=== PATIENT | male | born 1980 | race Caucasian/White ===

== ENCOUNTER 2017-12-07 10:37 | Inpatient (IN) ==
[2017-12-07] MEDS ORDERED: ATIVAN IM STA (10:41)
[2017-12-07] MEDS ORDERED: HALDOL IM STA (10:42)
[2017-12-07] MEDS ORDERED: SODIUM CHLORIDE 1,000 ML IV STA ×2 (10:44→12:27)
[2017-12-07] MEDS ORDERED: ATIVAN IVP STA ×2 (11:26→11:52)
[2017-12-07] MEDS ORDERED: GEODON IM STA (11:53)
--- NOTE | 2017-12-07 12:24 | ED.PDOC ---
General ED Provider: Dr. 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 states that he did not leave the premises upon being asked to leave by the veterinary technology instructor of property. Time Seen by Physician: 11:00 Mode of Arrival: Police Information Source: Patient, Police Exam Limitations: Altered mental status, Intoxication Nursing and Triage Documentation Reviewed and Agree: Yes Reviewed sepsis parameters & appropriate labs ordered?: Yes System Inflammatory Response Syndrome: Pulse >90 BPM Sepsis Protocol: For patient's 13 years and over: Temp is 96.8 and below OR 101 and greater Pulse >90 BPM Resp >20/minute Acutely Altered Mental Status Are patient's symptoms suggestive of a new infection, such as: -Pneumonia -Skin, Soft Tissue -Endocarditis -UTI -Bone, Joint Infection -Implantable Device -Acute Abdominal Infection -Wound Infection -Meningitis -Blood Stream Catheter Infection -Unknown Psychological Complaint Exam - Substance Abuse/Use Complaint/Exam Patient Complains Of Substance Abuse Of: Other (no history obtainable) Patient Complains Of Substance Withdrawal Of: Other (see above) Aggravating: Reports: None (unobtainable) Alleviating: Reports: Medication Associated Signs And Symptoms: Reports: Confused, Tremulous, Agitated Related History: Reports: Prior attempts (pt altered is not able to provide ) Completed Suicide Risk Factors: Male Social Withdrawal Present: No (unable to assertain) Social Isolation Present: No (see above) Patient Uncooperative For Exam: Yes (pt arrived altered agitated alert to self unable obtain history) Mood: Present: Agitated, Anxious Appearance: Present: Clean Differential Diagnoses: Alcohol Withdrawal, Drug Withdrawal, Delirium Tremens Quality Indicator For Non-Traumatic Chest Pain/Syncope: EKG Performed Review of Systems - Review Of Systems Constitutional: Reports: No symptoms Eyes: Reports: No symptoms Ears, Nose, Mouth, Throat: Reports: No symptoms Respiratory: Reports: No symptoms Cardiac: Reports: No symptoms GI: Reports: No symptoms : Reports: No symptoms Musculoskeletal: Reports: No symptoms Skin: Reports: No symptoms Neurological: Reports: Other (mental status) Endocrine: Reports: No symptoms Hematologic/Lymphatic: Reports: No symptoms All Other Systems: Reviewed and Negative Past Medical History - Past Medical History Previously Healthy: Yes Endocrine: Reports: Unknown Cardiovascular: Reports: Unknown Respiratory: Reports: None Hematological: Reports: Unknown Gastrointestinal: Reports: Unknown Genitourinary: Reports: Unknown Neuro/Psych: Reports: Unknown Musculoskeletal: Reports: Unknown Cancer: Reports: Unknown - Surgical History General Surgical History: Reports: None - Family History Family History: Reports: None - Social History Smoking Status: Unknown if ever smoked Physical Exam - Physical Exam Appearance: Ill-appearing Ill-appearing: Severe Eyes: EOMI (right pupil is dilated but reactive) ENT: Ears normal, Nose normal, Oropharynx normal Respiratory: Airway patent, Breath sounds clear, Breath sounds equal, Respirations nonlabored Cardiovascular: RRR, Pulses normal, No rub, No murmur GI/: Soft, Nontender, No masses, Bowel sounds normal, No Organomegaly Musculoskeletal: Normal strength, ROM intact, No edema, No calf tenderness Skin: Warm, Dry, Normal color Neurological: Sensation intact, Motor intact, Reflexes intact, Cranial nerves intact, Alert, Oriented Psychiatric: Affect appropriate, Mood appropriate Interpretation - Radiology Interpretation Radiology Interpretation By: Radiologist Radiology Results: Negative Exam Interpreted: CT Scan - Simplex Operator Rate: Normal Rhythm: Sinus Ectopy: None - EKG Interpretation Rate: Normal Rhythm: Sinus Ectopy: None [place]: NL ST Segment: Normal Re-Evaluation - Re-Evaluation Time of Re-Evaluation: 13:17 Status: Improved Vital Signs Stable: Yes Pain Level: 0 Appearance: NAD Lungs: Clear Skin: Warm and Dry Neuro: Other (dirientated x e rythmic jerking movement of lower ext bilateral) Physician Notification - Case Discussed Physician Notified: [email or web address] Time of Notification: 15:03 Admit To: Inpatient Critical Care Note - Critical Care Note Total Time (mins): 0 Course - Course Hematology/Chemistry: 12/07/17 11:50 12/07/17 11:50 Orders, Labs, Meds: Lab Review 12/07/17 12/07/17 12/07/17 11:50 11:50 11:50 WBC 11.32 H RBC 4.55 L Hgb 13.7 L Hct 39.5 L MCV 86.8 MCH 30.1 MCHC 34.7 RDW Coeff of Spenser 13.2 Plt Count 251 Immature Gran % (Auto) 0.3 Neut % (Auto) 72.1 Lymph % (Auto) 19.6 [facility] % (Auto) 5.3 Eos % (Auto) 1.7 Baso % (Auto) 1.0 Immature Gran # (Auto) 0.0 Neut # (Auto) 8.2 H Lymph # (Auto) 2.2 [facility] # (Auto) 0.6 Eos # (Auto) 0.2 Baso # (Auto) 0.1 PT 10.8 INR 1.08 Puncture Site O2 Saturation ABG pH ABG pCO2 ABG pO2 ABG HCO3 ABG Total CO2 ABG Base Excess Teo Test FiO2 % Sodium 146 H Potassium 3.9 Chloride 107 Carbon Dioxide 25 Anion Gap 17.9 BUN 10 Creatinine 1.26 H Estimated GFR (MDRD) 64.00 BUN/Creatinine Ratio 7.93 Glucose 73 Calcium 10.0 Total Bilirubin 0.5 AST 47 H ALT 41 Alkaline Phosphatase 75 Total Protein 8.0 Albumin 4.2 Globulin 3.8 Albumin/Globulin Ratio 1.11 Urine Color Urine Clarity Urine pH Ur Specific [place]ham Urine Protein Urine Glucose (UA) Urine Ketones Urine Blood Urine Nitrite Urine Bilirubin Urine Urobilinogen Ur Leukocyte Esterase Ur Squamous Epith Cells Urine Mucus Salicylate Level mg/dL < 5.0 Urine Opiates Screen Ur Oxycodone Screen Urine Methadone Screen Ur Propoxyphene Screen Acetaminophen < 3 L Ur Barbiturates Screen U Tricyclic Antidepress Ur Phencyclidine Scrn Ur Amphetamine Screen U Methamphetamines Scrn U Benzodiazepines Scrn Urine Cocaine Screen U Cannabinoids Screen Plasma/Serum Alcohol < 10.0 12/07/17 12/07/17 12/07/17 14:00 14:17 14:17 WBC RBC Hgb Hct MCV MCH MCHC RDW Coeff of Spenser Plt Count Immature Gran % (Auto) Neut % (Auto) Lymph % (Auto) [facility] % (Auto) Eos % (Auto) Baso % (Auto) Immature Gran # (Auto) Neut # (Auto) Lymph # (Auto) [facility] # (Auto) Eos # (Auto) Baso # (Auto) PT INR Puncture Site R rad O2 Saturation 93.0 L ABG pH 7.367 ABG pCO2 46.4 H ABG pO2 71.0 L ABG HCO3 26.6 H ABG Total CO2 28 ABG Base Excess 1 Teo Test + FiO2 % 21.0 Sodium Potassium Chloride Carbon Dioxide Anion Gap BUN Creatinine Estimated GFR (MDRD) BUN/Creatinine Ratio Glucose Calcium Total Bilirubin AST ALT Alkaline Phosphatase Total Protein Albumin Globulin Albumin/Globulin Ratio Urine Color Yellow Urine Clarity Clear Urine pH 5.5 Ur Specific [place] >=1.030 Urine Protein 1+ Urine Glucose (UA) Negative Urine Ketones Trace Urine Blood Negative Urine Nitrite Negative Urine Bilirubin 1+ Urine Urobilinogen 1.0 Ur Leukocyte Esterase Negative Ur Squamous Epith Cells Not present Urine Mucus 3+ Salicylate Level mg/dL Urine Opiates Screen Negative Ur Oxycodone Screen Negative Urine Methadone Screen Negative Ur Propoxyphene Screen Negative Acetaminophen Ur Barbiturates Screen Negative U Tricyclic Antidepress Negative Ur Phencyclidine Scrn Negative Ur Amphetamine Screen Positive U Methamphetamines Scrn Positive U Benzodiazepines Scrn Positive Urine Cocaine Screen Negative U Cannabinoids Screen Negative Plasma/Serum Alcohol Orders Category Date Time Status ABG DRAW REQUEST Stat CARDIO 12/07/17 10:49 Completed EKG-(ED ONLY) Stat CARDIO 12/07/17 10:43 Completed ED BASEBALL PITCHER APPLIED ONCE EMERGENCY 12/07/17 10:43 Active ED IV/MEDIPORT/POWERPORT .ONCE EMERGENCY 12/07/17 10:43 Active Restrain [ED RESTRAINTS] .ONCE EMERGENCY 12/07/17 10:52 Active ABG Stat LAB 12/07/17 14:00 Completed ACETAMINOPHEN Stat LAB 12/07/17 11:50 Completed BLOOD ALCOHOL Stat LAB 12/07/17 11:50 Completed CBC W/ AUTO DIFF Stat LAB 12/07/17 11:50 Completed COMPREHENSIVE METABOLIC PANEL Stat LAB 12/07/17 11:50 Completed DRUG SCREEN, URINE, RAPID Stat LAB 12/07/17 14:17 Completed PT WITH INR Stat LAB 12/07/17 11:50 Completed SALICYLATE Stat LAB 12/07/17 11:50 Completed URINALYSIS C & S IF INDICATED Stat LAB 12/07/17 14:17 Completed 0.9 % Sodium Chloride [Saline Flush] MEDS 12/07/17 10:43 Active 1 syr IVF PRN PRN Haloperidol Lactate [Haldol] MEDS 12/07/17 10:42 Discontinued 5 mg IM ONCE STA Lorazepam [Ativan] MEDS 12/07/17 11:26 Discontinued 1 mg IVP ONCE STA Lorazepam [Ativan] MEDS 12/07/17 11:52 Discontinued 1 mg IVP ONCE STA Lorazepam [Ativan] MEDS 12/07/17 10:41 Discontinued 2 mg IM ONCE STA Sodium Chloride 0.9% [Sodium Chloride] 1,000 ml MEDS 12/07/17 10:44 Active IV 125 mls/hr Sodium Chloride 0.9% [Sodium Chloride] 1,000 ml MEDS 12/07/17 12:27 Active IV 125 mls/hr Ziprasidone Mesylate [Geodon] MEDS 12/07/17 11:53 Discontinued 10 mg IM ONCE STA CT HEAD W/O CONTRAST Stat RADS 12/07/17 10:54 Completed Medications Generic Name Dose Route Start Last Admin Trade Name Freq PRN Reason Stop Dose Admin Sodium Chloride 1,000 mls @ 125 mls/hr 12/07/17 10:44 12/07/17 11:37 Sodium Chloride IV 12/07/17 18:43 125 mls/hr .Q8H STA Administration Sodium Chloride 1,000 mls @ 125 mls/hr 12/07/17 12:27 12/07/17 12:33 Sodium Chloride IV 12/07/17 20:26 125 mls/hr .Q8H STA Administration Sodium Chloride 1 syr 12/07/17 10:43 Saline Flush IVF PRN PRN To flush IV Discontinued Medications Generic Name Dose Route Start Last Admin Trade Name Freq PRN Reason Stop Dose Admin Haloperidol Lactate 5 mg 12/07/17 10:42 12/07/17 10:59 Haldol IM 12/07/17 10:43 5 mg ONCE STA Administration Lorazepam 2 mg 12/07/17 10:41 12/07/17 10:58 Ativan IM 12/07/17 10:42 2 mg ONCE STA Administration Lorazepam 1 mg 12/07/17 11:26 12/07/17 11:37 Ativan IVP 12/07/17 11:27 1 mg ONCE STA Administration Lorazepam 1 mg 12/07/17 11:52 12/07/17 12:07 Ativan IVP 12/07/17 11:53 1 mg ONCE STA Administration Ziprasidone 10 mg 12/07/17 11:53 12/07/17 12:10 Geodon IM 12/07/17 11:54 10 mg ONCE STA Administration Vital Signs: Temp Pulse Resp BP Pulse Ox 12/07/17 10:56 134/117 H 12/07/17 10:39 99.5 F 138 H 20 00/00 L 95 Departure - Departure Time of Disposition: 15:03 Disposition: ADMITTED INPATIENT Discharge Problem: Altered mental status Instructions: Altered Mental Status (ED) Condition: Good Pt referred to PMD for follow-up: Yes IPMP verified?: No Additional Instructions: Please call your Family Physician as soon as possible to schedule a follow-up appointment. Allergies/Adverse Reactions: Allergies No Known Allergies Allergy (Unverified 12/07/17 13:18)
--- NOTE | 2017-12-07 13:19 | CT ---
EXAM: CT of the head without contrast History: Altered mental status, overdose. Technique: Multiplanar CT images through the head were obtained without the administration of IV con trast Findings: The visualized paranasal sinuses and mastoid air cells are clear in general. Artificial l eft globe. No acute calvarial abnormalities. Intracranially the ventricular and cisternal spaces are normal in size, shape and configuration for a patient of this age. No dominant mass or midline shift. No hydrocephalous. No acute intracranial hemorrhage or abnormal extraaxial fluid collections. Impression: No acute intracranial process.
[2017-12-07] MEDS ORDERED: SODIUM CHLORIDE 1,000 ML IV SCH (15:30)
[2017-12-07 16:32] VITALS: BMI 21.4
--- NOTE | 2017-12-07 17:07 | PCM ---
- Chief Complaint Chief Complaint: Acute Methamphetamine intoxication - History of Present Illness History of Present Illness: 37 yo male presented to ER via police car today around 10:39am with complaint of agitation, shaking, sweating, hallucinations and tachycardia. Dr. Villa called me around 1:30 pm with admission, patient sedated with Geodon, Haldol and ativan and 4 point restraints. I was informed that vitals were stable, labs were normal except mild hypernatremia and mild DHRUV. Anuric while in ER and I asked for a cath specimen for tox. Returned call around 3PM from LOVE arzola and noted +Meth, +Amp and +Benzo (given by ER). I asked about warrants, status of home, status of state of residency, any known history, any priors, any family, these were all unknown. He was combative, staying at local hotel and the hotel agent asked him to leave and he would not so police were called. He was brought here for evaluation by [facility] dept. Alterred mental status, intoxicated with something, unknown initially, but was found later to be meth +. Pulse was elevated at 138 on initial eval, temp 99.5, Blood pressure 134/117 at 10:56 am and O2 95%. Unknown history of substance abuse. Unknown family history, unknown Past medical history, unknown surgical history. He has skin graft right thigh onto righ calf. ER evaluated him for DT, ETOH intox/withdrawal. Uncooperative with exam, agitated, self responsive but history unobtainable. He was restrained, would not cooperate and decision to chemically and physically restrain was undertaken. In ER he was given Haldol 5mg 10:43 am, Geodon 10mg 11:54 am, Ativan 2 mg 10:42 am. ROS unable to obtain but he did walk into ER with police. Confusion noted. Right pupil listed as dilated but reactive. 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 Remainder of exam essentially negative in ER. EKG (not available at time that I completed H+P) discussed with ER provider who reviewed this and was related as normal. Placed onto driver guide. CT head completed and negative for acute bleed, no e/o infarction. 13:17 ER noted some jerking bilateral LE. Contacted me 15:03, admitted to inpatient. Labs reviewed with ER and personally discussed case with the provider and with LOVE arzola. White count mildly elevated at 11.32, mild anemia with hgb 13.7 and normal plt at 251. Sodium mildly elevated at 146 , K+ normal 3.9, cl normal 107, Bicarb normal 25, BUN normal 10, Cr elevated at 1.26 and acute renal failure is possible. Glucose mildly low at 73. PT normal 10.8, INR normal 1.08. AST mild elevation at 47. Calcium normal, remainder of lcmp normal. Salicylate negative, acetaminophen negative. ETOH negative. UA looks okay with pH 5.5, SG 1.030 supporting concentrated urine likely dehydration. 1+ protein, trace ketones, 1+ bili. Tox screen returned positive for amp, meth, benzo (hospital given). He is currently on maintenance fluids of 75ml/hour. I will continue this at 125 ml/hour which is fdc between maintenance and maintenance 1.5. ABG: Chronic (compensated) primary respiratory acidosis as the pH should be less than <7.35 and HCO3 less than < 25, for acute (uncompensated) and pH should be greater than > 7.38 and HCO3 greater than > 26, for chronic ( compensated) expected pH = 7.39 expected CO2 = 48 expected HCO3- = 26 Vital Signs - 24 hr 12/07/17 12/07/17 12/07/17 10:39 10:56 16:18 Temperature 99.5 F 97.2 F L Pulse Rate 138 H 73 Respiratory 20 16 Rate Blood Pressure 00/00 L 134/117 H O2 Sat by Pulse 95 95 Oximetry 12/07/17 17:07 Temperature 97.2 F L Pulse Rate 73 Respiratory 16 Rate Blood Pressure 134/117 H O2 Sat by Pulse 95 Oximetry REVIEW OF SYMPTOMS: General: UNABLE TO OBTAIN PATIENT IS SEDATED and currently unable to provide history. Lying position left lateral decubitus. Diaphoretic at presentation. HEENT: UNABLE TO OBTAIN PATIENT IS SEDATED and currently unable to provide history. Artificial eye reported left. Respiratory: UNABLE TO OBTAIN PATIENT IS SEDATED and currently unable to provide history. Cardiovascular: UNABLE TO OBTAIN PATIENT IS SEDATED and currently unable to provide history. Tachycardic at presentation. Gastro: UNABLE TO OBTAIN PATIENT IS SEDATED and currently unable to provide history. Genito: UNABLE TO OBTAIN PATIENT IS SEDATED and currently unable to provide history. [place]: UNABLE TO OBTAIN PATIENT IS SEDATED and currently unable to provide history. Contracted, rigid. Reported rhythmic bilateral LE jerking. Skin: UNABLE TO OBTAIN PATIENT IS SEDATED and currently unable to provide history. Neuro: UNABLE TO OBTAIN PATIENT IS SEDATED and currently unable to provide history. Endocrine: UNABLE TO OBTAIN PATIENT IS SEDATED and currently unable to provide history. Psychiatric: UNABLE TO OBTAIN PATIENT IS SEDATED and currently unable to provide history. Nurses noted that patient was combative, hallucinating. Heme/lymph: UNABLE TO OBTAIN PATIENT IS SEDATED and currently unable to provide history. Allergic/immune: UNABLE TO OBTAIN PATIENT IS SEDATED and currently unable to provide history. - Past Medical History Past Medical History: UNABLE TO OBTAIN PATIENT IS SEDATED and currently unable to provide history. - Past Surgical History Past Surgical History: UNABLE TO OBTAIN PATIENT IS SEDATED and currently unable to provide history. - Allergies Allergies/Adverse Reactions: Allergies Allergy/AdvReac Type Severity Reaction Status Date / Time No Known Allergies Allergy Unverified 12/07/17 13:18 - Medications Medications: Medications Generic Name Dose Route Start Last Admin Trade Name Freq PRN Reason Stop Dose Admin Sodium Chloride 1,000 mls @ 125 mls/hr 12/07/17 10:44 12/07/17 11:37 Sodium Chloride IV 12/07/17 18:43 125 mls/hr .Q8H STA Administration Sodium Chloride 1,000 mls @ 125 mls/hr 12/07/17 12:27 12/07/17 12:33 Sodium Chloride IV 12/07/17 20:26 125 mls/hr .Q8H STA Administration Sodium Chloride 1,000 mls @ 75 mls/hr 12/07/17 15:30 12/07/17 16:43 Sodium Chloride IV 75 mls/hr .[id number] TRISH Administration Sodium Chloride 1 syr 12/07/17 10:43 Saline Flush IVF PRN PRN To flush IV - Family History Past Family History: UNABLE TO OBTAIN PATIENT IS SEDATED and currently unable to provide history. - Social History Past Social History: UNABLE TO OBTAIN PATIENT IS SEDATED and currently unable to provide history. - Vital Signs Temperature: 97.2 F Pulse Rate: 73 Respiratory Rate: 16 Blood Pressure: 134/117 O2 Sat by Pulse Oximetry: 95 - Body Composition Height: 5 ft 6 in Weight: 132 lb 7.965 oz Body Mass Index (BMI): 21.4 - Physical Examination HEENT: Constitutional: PATIENT EVALUATED IN SCU-2 17:00 Appearance-Sedated, lateral decubitus, hips flexed knees flexed ankles dorsiflexed. Arms held close as well into position. He is breathing calmly, clearly. Did not respond to name, did not respond to tapping arm, did not respond to sternal rub, but did have grimmace and did groan. Chemically sedated with multiple agents. BP is stable. Nurse Ver[place] present during my entire exam, noted that he has been like this since arrival. No decubitus ulcers, he has history of graft from right thigh to linda. Thin, fit, non emaciated. He would not open eyes to verbal command. Orientation- NON oriented x 3, sedated. Gait- 4 point restraints are off. Build and Nutrition-NORMAL Integumentary: General-No rashes, ulcers or lesions. Scar as noted. Capillary refill is normal bilateral Upper and lower extremity. Head/Neck: Head- normocephalic and atraumatic. Neck- without visible/palpable lumps or pulsations. Palpation- No bony tenderness about head/neck along frontal, occipital, temporal, parietal, mastoid, jawline, zygoma, orbit or any other location. NO temporal artery tenderness. No TMJ tenderness. Neck Supple. Thyroid-No thyromegaly, no nodules Eye: Bilaterally PERRLA on right. Dilated but reactive. Unable to assessEOMI. Left eye not responsive, appears artificial. No discharge bilaterally. Upper and lower eyelids appear normal. Sclera/conjunctiva normal without discharge. Cornea is normal and clear. Lens is normal. Eyeball appears normal. No ciliary flushing, no conjunctival injection. ENMT: Pinna- normal without tenderness or erythema. External auditory canal Left- normal without erythema or discharge, no excessive cerumen. External auditory canal Right-normal without erythema or discharge, no excessive cerumen. TM left- [place]/pearly, normal light reflex and anatomy TM Right- [place]/ pearly, normal light reflex and anatomy Nose and sinus- External appearance normal and midline. Nares- bilateral quiet airflow, no discharge. Nasal mucosa- No bleeding noted and no ulcerations observed. [place], moist. Turbinates non boggy. Lips- normal color, moist without cracks/lesions Oral Cavity/Palate- hard /soft palate intact without lesions, oral mucosa pink and moist. Oropharynx- no pharyngeal erythema, Uvula midline. CHEST/LUNG: Inspection- symmetric chest wall no pectus deformity. Normal effort , no distress, no use of accessory muscles. Palpation- nontender sternum, ribline. No abnormal pulsations. Auscultation- Breath sounds normal throughout all lung clement. Normal tracheal sounds, Normal bronchial sounds overlying sternum, Bronchovessicular sounds normal between scapulae posteriorly, Normal vessicular breath sounds heard throughout periphery. Lungs are clear today. Adventitious sounds- No wheezes, rales, rhonchi. CARDIOVASCULAR: Palpation/Percussion- Normal PMI, no palpable thrill Auscultation- Regular rate and rhythm. No murmur noted in supine position. Extremities- no digital clubbing, cyanosis, edema, increased warmth. ABDOMEN: Inspection- normal and no visible pulsations. Normal contour. Auscultation- Bowel sounds normal, no abdominal bruits. Patient sedated, unable to assess for abdominal pain. Peripheral Vascular: Upper extremity Left- Normal temperature with pink nailbeds and no ulcerations. Upper extremity Right- Normal temperature with pink nailbeds and no ulcerations. Lower extremity- Normal temperature with pink nailbeds and no ulcerations. DP pulses 2+ bilaterally. Pedal hair intact. Normal capillary refill. Edema- No edema. Musculoskeletal: Generalized-Rigid, hypertonic (NOT DIAPHORETIC NOW, AFEBRILE, Normal HR, no tachypnea, no autonomic processes at this time). He did not like to extend knee or hip. Flexed hips, flexed knees, dorsiflexed ankles and arms are pulled in tight into a ball. Lateral decubitus position. Breathing comfortably. Neurological/Psych: Sedated. Pain response is present, withdraws to pain. Reflexes intact, dulled 1+ bracial, bicep, patellar. Babinski negative/ downgoing. Lymphatic: Head/Neck- normal size and non tender to palpation. Axillary- normal size and non tender to palpation. Femoral and Inguinal- normal size and non tender to palpation. - Lab/Tests/Diagnostic Imaging Lab/Tests/Diagnostic Imaging: Laboratory Results - last 24 hr 12/07/17 12/07/17 12/07/17 11:50 11:50 11:50 WBC 11.32 H RBC 4.55 L Hgb 13.7 L Hct 39.5 L MCV 86.8 MCH 30.1 MCHC 34.7 RDW Coeff of Spenser 13.2 Plt Count 251 Immature Gran % (Auto) 0.3 Neut % (Auto) 72.1 Lymph % (Auto) 19.6 [place] % (Auto) 5.3 Eos % (Auto) 1.7 Baso % (Auto) 1.0 Immature Gran # (Auto) 0.0 Neut # (Auto) 8.2 H Lymph # (Auto) 2.2 [place] # (Auto) 0.6 Eos # (Auto) 0.2 Baso # (Auto) 0.1 PT 10.8 INR 1.08 Puncture Site O2 Saturation ABG pH ABG pCO2 ABG pO2 ABG HCO3 ABG Total CO2 ABG Base Excess Teo Test FiO2 % Sodium 146 H Potassium 3.9 Chloride 107 Carbon Dioxide 25 Anion Gap 17.9 BUN 10 Creatinine 1.26 H Estimated GFR (MDRD) 64.00 BUN/Creatinine Ratio 7.93 Glucose 73 Calcium 10.0 Total Bilirubin 0.5 AST 47 H ALT 41 Alkaline Phosphatase 75 Total Protein 8.0 Albumin 4.2 Globulin 3.8 Albumin/Globulin Ratio 1.11 Urine Color Urine Clarity Urine pH Ur Specific [place] Urine Protein Urine Glucose (UA) Urine Ketones Urine Blood Urine Nitrite Urine Bilirubin Urine Urobilinogen Ur Leukocyte Esterase Ur Squamous Epith Cells Urine Mucus Salicylate Level mg/dL < 5.0 Urine Opiates Screen Ur Oxycodone Screen Urine Methadone Screen Ur Propoxyphene Screen Acetaminophen < 3 L Ur Barbiturates Screen U Tricyclic Antidepress Ur Phencyclidine Scrn Ur Amphetamine Screen U Methamphetamines Scrn U Benzodiazepines Scrn Urine Cocaine Screen U Cannabinoids Screen Plasma/Serum Alcohol < 10.0 12/07/17 12/07/17 12/07/17 14:00 14:17 14:17 WBC RBC Hgb Hct MCV MCH MCHC RDW Coeff of Spenser Plt Count Immature Gran % (Auto) Neut % (Auto) Lymph % (Auto) [place] % (Auto) Eos % (Auto) Baso % (Auto) Immature Gran # (Auto) Neut # (Auto) Lymph # (Auto) [place] # (Auto) Eos # (Auto) Baso # (Auto) PT INR Puncture Site R rad O2 Saturation 93.0 L ABG pH 7.367 ABG pCO2 46.4 H ABG pO2 71.0 L ABG HCO3 26.6 H ABG Total CO2 28 ABG Base Excess 1 Teo Test + FiO2 % 21.0 Sodium Potassium Chloride Carbon Dioxide Anion Gap BUN Creatinine Estimated GFR (MDRD) BUN/Creatinine Ratio Glucose Calcium Total Bilirubin AST ALT Alkaline Phosphatase Total Protein Albumin Globulin Albumin/Globulin Ratio Urine Color Yellow Urine Clarity Clear Urine pH 5.5 Ur Specific [place] >=1.030 Urine Protein 1+ Urine Glucose (UA) Negative Urine Ketones Trace Urine Blood Negative Urine Nitrite Negative Urine Bilirubin 1+ Urine Urobilinogen 1.0 Ur Leukocyte Esterase Negative Ur Squamous Epith Cells Not present Urine Mucus 3+ Salicylate Level mg/dL Urine Opiates Screen Negative Ur Oxycodone Screen Negative Urine Methadone Screen Negative Ur Propoxyphene Screen Negative Acetaminophen Ur Barbiturates Screen Negative U Tricyclic Antidepress Negative Ur Phencyclidine Scrn Negative Ur Amphetamine Screen Positive U Methamphetamines Scrn Positive U Benzodiazepines Scrn Positive Urine Cocaine Screen Negative U Cannabinoids Screen Negative Plasma/Serum Alcohol - Assessment (1) Toxic metabolic encephalopathy Status: Acute Code(s): G92 - TOXIC ENCEPHALOPATHY SNOMED Code(s): 409069960 (2) Altered mental status Status: Acute Code(s): R41.82 - ALTERED MENTAL STATUS, UNSPECIFIED SNOMED Code(s): 787952820 (3) DHRUV (acute kidney injury) Status: Acute Code(s): N17.9 - ACUTE KIDNEY FAILURE, UNSPECIFIED SNOMED Code (s): 21768273 (4) Hypernatremia Status: Acute Code(s): E87.0 - HYPEROSMOLALITY AND HYPERNATREMIA SNOMED Code (s): 83685788 (5) Dehydration Status: Acute Code(s): E86.0 - DEHYDRATION SNOMED Code(s): 83472748 (6) At risk for injury related to restraints Status: Acute Code(s): Z91.89 - OTH PERSONAL RISK FACTORS, NOT ELSEWHERE CLASSIFIED SNOMED Code(s): 19604233 (7) Risk for falls Status: Acute Code(s): R29.6 - REPEATED FALLS SNOMED Code(s): 306452331 (8) Leukocytosis Status: Acute Code(s): D72.829 - ELEVATED WHITE BLOOD CELL COUNT, UNSPECIFIED SNOMED Code(s): 217612519, 964357412 (9) Normocytic anemia Status: Acute Code(s): D64.9 - ANEMIA, UNSPECIFIED SNOMED Code(s): 464636168 - Plan Plan: Toxic metabolic encephalopathy (Acute)/Altered mental status: Presented to ER combative, hallucinating and unaware of day/date/time/person. He was physically and chemically restrained. Now sedated, unable to provide own history. GCS 8 in room (eye 2, incomprehensible sounds 2, pain 4). He was likely intoxicated. UDS showed +Meth. Alterred mental status now with fluid hydration. ETOH, salicylate and tylenol negative. Continue benzos for agitation. Reassess in am. Vitals regularly throughout night to monitor for HR , RR, Temp, BP. Currently BP stable, HR stable and vitals in general are good. Maintaining airway. No e/o sepsis/shock, no SIRS criteria. No e/o infection. Even thought ETOH negative now, will give thiamine 100 mg IV x 1 to cover for Wern[place]ke. Monitor electrolytes in am. - Maintain ativan 1-2mg q 2 hours PRN agitation. - Monitor temperature - monitor vitals - Fall precautions - CBC/CMP in am. - Fluid NS 125ml/hour. - Thiamine 100mg IV x1. DHRUV (acute kidney injury) (Acute)/Dehydration: Fluid hydrate 125ml/hour overnight. Reassess CBC/CMP in am. - NS 125ml/hour - CMP in am - CBC in am. - CPK now. At risk for injury related to restraints (Acute): Physical restraints d/c by us. He is currently sedated. Monitor. Ativan 1mg q 2 hours Hypernatremia (Acute)/Dehydration: Fluid hydrate, recheck CMP in am. Monitor sodium. Currently minimally elevated. We will continue to watch this tonight. - CMP in am - Continue NS 125ml/hour. Risk for falls (Acute): - Fall precaution Leukocytosis: Suspect some degree of hemoconcentration even with anemia. Demargination is possible as well. NO e/o infection at this time. Reassess in am. - CBC in am. Diet: - NPO for now, reassess in am. DVT Prophy: CT head was negative, unable to assess for bleeding risk. VTE prophy is needed will use KAROL/SCD for now. -KAROL/SCD. GI Prophy: - NONE 70 minutes spent in preparing the inpatient admission. Acute altered mental status with acute renal failure/hypernatremia/dehydration. Discussed case with ER doctor, PA student, nursing on floor, evaluated patient, attempted to contact police to see if they had additional information. DHRUV and toxic metabolic encephalopathy can both be life threatening and high risk. Smoking status unknown. Fall status unknown. Meds unknown, Past family/social/surgical/ medical history unknown and unobtainable. AT this time patient is sedated. We will continue with ativan throughout night, fluids overnight and reassess patient and try to obtain more history in the am. At this time guarded status secondary to the above problems. coordination
[2017-12-07] MEDS ORDERED: ATIVAN IVP PRN (18:15)
[2017-12-07] MEDS ORDERED: THIAMINE 100 MG in SODIUM CHLORIDE 50 ML IV STA (18:22)
[2017-12-07] MEDS ORDERED: THIAMINE ONE (19:41)
[2017-12-07] MEDS: SODIUM CHLORIDE 1,000 ML IV SCH (22:46)
[2017-12-08] MEDS: SODIUM CHLORIDE 1,000 ML IV SCH (05:02)
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
[2017-12-08] MEDS ORDERED: K-DUR PO SCH (08:00)
[2017-12-08] MEDS ORDERED: MORPHINE 4 MG/ML VIAL ONE (08:31)
[2017-12-08] MEDS ORDERED: MORPHINE 2 MG/ML SYRINGE IVP STA (08:38)
[2017-12-08] MEDS ORDERED: TYLENOL PO PRN (08:39)
[2017-12-08] MEDS ORDERED: MORPHINE 4 MG/ML VIAL IVP STA (08:41)
--- NOTE | 2017-12-08 08:50 | PCM.PROG ---
Toenail Avulsion Procedure: Verbal and written informed consent obtained. Procedure completed in SCU-2. Nail needed to be removed to reduce chances of further damage to nail matrix, nail bed and toe. Using betadine swabs x 3, entire toe was cleansed from proximal to distal and then nail margin outward. Nail remained attached at proximal cuticle and edge of nail. Offered lidocaine and discussed that this would likely cause more pain to inject lidocaine and digit block than simply to remove the nail. Using hemostat, superior edge of cuticle gently extracted away from nail. Gentle traction placed onto the nail and with continued removal of cuticle, remainder of nail was lifted from plate and removed from nail fold. Using hemostat nail gripped and rolled inward. Nail removed en bloc and patient tolerated the procedure well, sans local anesthetic. Minimal bleeding. Mild pain with removal near end of procedure. Bacitracin applied 2x2 gauze x3 applied, [place] wrapped around toe. Discussed post removal procedures with patient. Tetanus status up to date with last shot within 5 years. 1. F/U PRN. 2. Post instructions given to include: Keep foot elevated for first 24 hours, 3. Change dressing in 24 hours then PRN 4. Consider daily antibiotic ointment (e.g. Bacitracin) until heeled, do not submerge for 1 week. 5. Showering okay, but no soakings. 6. Avoid trauma to toe for first 1 weeks to include running Wear loose-fitting shoes If any signs of infection, return to clinic. Procedure: Great toenail removal on right.
[2017-12-08] MEDS ORDERED: NICODERM 21 MG TD SCH (09:00)
[2017-12-08 09:45] VITALS: BP 114/73; TEMP 97.5
--- NOTE | 2017-12-08 13:26 | PCM.DC ---
Final Diagnosis: Toxic Metabolic Encephalopathy (Acute) Altered mental status (Acute) Methamphetamine intoxication (Acute) At risk for injury related to restraints (Acute) Dehydration (Resolved) Elevated CK-MB level (Improving) IV drug user (Chronic) Low serum potassium (Acute): Myalgia (Acute) Normocytic anemia (Acute) Leukocytosis (RESOLVED) Risk for falls (Acute) Smokes 1 pack of cigarettes per day (Acute) Toenail avulsion (Acute) History of Hepatitis C DHRUV (RESOLVED) (1) Toxic metabolic encephalopathy Status: Resolved Code(s): G92 - TOXIC ENCEPHALOPATHY SNOMED Code(s): 816889824 (2) Altered mental status Status: Acute Code(s): R41.82 - ALTERED MENTAL STATUS, UNSPECIFIED SNOMED Code(s): 332232346 (3) DHRUV (acute kidney injury) Status: Resolved Code(s): N17.9 - ACUTE KIDNEY FAILURE, UNSPECIFIED SNOMED Code(s): 39407585 (4) Hypernatremia Status: Resolved Code(s): E87.0 - HYPEROSMOLALITY AND HYPERNATREMIA SNOMED Code(s): 04800811 (5) Dehydration Status: Acute Code(s): E86.0 - DEHYDRATION SNOMED Code(s): 01002577 (6) At risk for injury related to restraints Status: Resolved Code(s): Z91.89 - OTH PERSONAL RISK FACTORS, NOT ELSEWHERE CLASSIFIED SNOMED Code(s): 55909927 (7) Risk for falls Status: Acute Code(s): R29.6 - REPEATED FALLS SNOMED Code(s): 093279438 (8) Leukocytosis Status: Resolved Code(s): D72.829 - ELEVATED WHITE BLOOD CELL COUNT, UNSPECIFIED SNOMED Code(s): 354083539, 992886957 (9) Normocytic anemia Status: Acute Code(s): D64.9 - ANEMIA, UNSPECIFIED SNOMED Code(s): 149290604 (10) Elevated CK-MB level Status: Acute Code(s): R74.8 - ABNORMAL LEVELS OF OTHER SERUM ENZYMES SNOMED Code(s): 903681713 (11) Myalgia Status: Acute Code(s): M79.1 - MYALGIA SNOMED Code(s): 51505497 (12) IV drug user Status: Acute Code(s): F19.90 - OTHER PSYCHOACTIVE SUBSTANCE USE, UNSPECIFIED , UNCOMPLICATED SNOMED Code(s): 886300069 (13) Smokes 1 pack of cigarettes per day Status: Acute Code(s): F17.210 - NICOTINE DEPENDENCE, CIGARETTES, UNCOMPLICATED SNOMED Code(s): 57834215 (14) Toenail avulsion Status: Acute Code(s): S91.209A - UNSP OPEN WOUND OF UNSP TOE(S) W DAMAGE TO NAIL, INIT ENCNTR SNOMED Code(s): 339813624 (15) Low serum potassium Status: Acute Code(s): E87.6 - HYPOKALEMIA SNOMED Code(s): 753211390 (16) Methamphetamine intoxication Status: Acute Code(s): F15.929 - OTHER STIMULANT USE, UNSP WITH INTOXICATION, UNSPECIFIED SNOMED Code(s): 30520727156143470 Reason for Hospitalization: Acute methamphetamine intoxication, toxic metabolic encephalopathy, altered mental status, dehydration, DHRUV Prognosis at Discharge: Patient was awake alert and oriented, capable of making own decisions. He Left Against medical advise. Still monitoring elevated CK-MB and monitoring sodium/ potassium and using fluid hydration due to DHRUV (improved with fluids). Condition at Discharge: Improved Medications at Discharge: None Lab/Diagnostics: Laboratory Last Values WBC 9.98 K/ul (4.2-10.2) 12/08/17 05:00 RBC 4.24 10^6/ul (4.70-6.10) L 12/08/17 05:00 Hgb 12.5 g/dl (14.0-18.0) L 12/08/17 05:00 Hct 38.1 % (42.0-52.0) L 12/08/17 05:00 MCV 89.9 fl (80.0-94.0) 12/08/17 05:00 MCH 29.5 pg (27.0-31.0) 12/08/17 05:00 MCHC 32.8 (31.8-35.4) 12/08/17 05:00 RDW Coeff of [place]ens[place] 13.3 % (11.6-14.8) 12/08/17 05:00 Plt Count 202 10^3/uL (140-440) 12/08/17 05:00 Immature Gran % (Auto) 0.1 % (0.0-5.0) 12/08/17 05:00 Neut % (Auto) 64.9 12/08/17 05:00 Lymph % (Auto) 26.6 (10.0-50.0) 12/08/17 05:00 Rankin % (Auto) 6.1 (0-10) 12/08/17 05:00 Eos % (Auto) 1.6 % (0.0-7.0) 12/08/17 05:00 Baso % (Auto) 0.7 % (0.0-3.0) 12/08/17 05:00 Immature Gran # (Auto) 0.0 (0.0-1.0) 12/08/17 05:00 Neut # (Auto) 6.5 K/ul (2.0-6.9) 12/08/17 05:00 Lymph # (Auto) 2.7 K/uL (0.60-3.4) 12/08/17 05:00 Rankin # (Auto) 0.6 K/uL (0.4-2.0) 12/08/17 05:00 Eos # (Auto) 0.2 K/ul (0.0-0.7) 12/08/17 05:00 Baso # (Auto) 0.1 K/uL (0-0.2) 12/08/17 05:00 PT 10.8 SEC (9.3-11.0) 12/07/17 11:50 INR 1.08 SI (0.0-3.9) 12/07/17 11:50 Puncture Site R rad 12/07/17 14:00 O2 Saturation 93.0 % (95-100) L 12/07/17 14:00 ABG pH 7.367 (7.35-7.45) 12/07/17 14:00 ABG pCO2 46.4 mmHg (35-45) H 12/07/17 14:00 ABG pO2 71.0 mmHg (85-100) L 12/07/17 14:00 ABG HCO3 26.6 (22.0-26.0) H 12/07/17 14:00 ABG Total CO2 28 (22.0-28.0) 12/07/17 14:00 ABG Base Excess 1 (-2.0-2.0) 12/07/17 14:00 Teo Test + 12/07/17 14:00 FiO2 % 21.0 % 12/07/17 14:00 Sodium 143 mmol/L (136-145) 12/08/17 05:00 Potassium 3.6 mmol/L (3.5-5.1) 12/08/17 05:00 Chloride 110 mmol/L (98-107) H 12/08/17 05:00 Carbon Dioxide 23 mmol/L (21-32) 12/08/17 05:00 Anion Gap 13.6 12/08/17 05:00 BUN 9 mg/dL (7-18) 12/08/17 05:00 Creatinine 0.85 mg/dL (0.60-1.10) 12/08/17 05:00 Estimated GFR (MDRD) 100.00 mL/min 12/08/17 05:00 BUN/Creatinine Ratio 10.58 12/08/17 05:00 Glucose 84 mg/dL (70-100) 12/08/17 05:00 Calcium 8.7 mg/dL (8.2-10.2) 12/08/17 05:00 Total Bilirubin 0.4 mg/dL (0.00-1.20) 12/08/17 05:00 AST 39 U/L (15-37) H 12/08/17 05:00 ALT 31 U/L (12-78) 12/08/17 05:00 Alkaline Phosphatase 61 U/L (50-136) 12/08/17 05:00 Total Creatine Kinase 577 U/L 12/08/17 05:00 CK-MB (CK-2) 13.5 ng/ml (0.0-3.6) H* 12/08/17 05:00 CK-MB (CK-2) % 2.88902 12/08/17 05:00 Troponin I 0.0160 ng/ml (0.0000-0.4000) 12/08/17 05:00 Total Protein 6.3 g/dL (6.4-8.2) L 12/08/17 05:00 Albumin 3.3 g/dL (3.4-5.0) L 12/08/17 05:00 Globulin 3.0 12/08/17 05:00 Albumin/Globulin Ratio 1.10 12/08/17 05:00 Urine Color Yellow (YELLOW) 12/07/17 14:17 Urine Clarity Clear (CLEAR) 12/07/17 14:17 Urine pH 5.5 (5-9) 12/07/17 14:17 Ur Specific [place] >=1.030 (1.005-1.030) 12/07/17 14:17 Urine Protein 1+ (NEGATIVE) 12/07/17 14:17 Urine Glucose (UA) Negative (NEGATIVE) 12/07/17 14:17 Urine Ketones Trace (NEGATIVE) 12/07/17 14:17 Urine Blood Negative (NEGATIVE) 12/07/17 14:17 Urine Nitrite Negative (NEGATIVE) 12/07/17 14:17 Urine Bilirubin 1+ (NEGATIVE) 12/07/17 14:17 Urine Urobilinogen 1.0 (0.2) 12/07/17 14:17 Ur Leukocyte Esterase Negative (NEGATIVE) 12/07/17 14:17 Ur Squamous Epith Cells Not present (0-5) 12/07/17 14:17 Urine Mucus 3+ (NOT PRESENT) 12/07/17 14:17 Salicylate Level mg/dL < 5.0 mg/dL (2.8-20.0) 12/07/17 11:50 Urine Opiates Screen Negative (NEGATIVE) 12/07/17 14:17 Ur Oxycodone Screen Negative (NEGATIVE) 12/07/17 14:17 Urine Methadone Screen Negative (NEGATIVE) 12/07/17 14:17 Ur Propoxyphene Screen Negative (NEGATIVE) 12/07/17 14:17 Acetaminophen < 3 ug/ml (10-30) L 12/07/17 11:50 Ur Barbiturates Screen Negative (NEGATIVE) 12/07/17 14:17 U Tricyclic Antidepress Negative (NEGATIVE) 12/07/17 14:17 Ur Phencyclidine Scrn Negative (NEGATIVE) 12/07/17 14:17 Ur Amphetamine Screen Positive (NEGATIVE) 12/07/17 14:17 U Methamphetamines Scrn Positive (NEGATIVE) 12/07/17 14:17 U Benzodiazepines Scrn Positive (NEGATIVE) 12/07/17 14:17 Urine Cocaine Screen Negative (NEGATIVE) 12/07/17 14:17 U Cannabinoids Screen Negative (NEGATIVE) 12/07/17 14:17 Plasma/Serum Alcohol < 10.0 mg/dL (0.0-80.0) 12/07/17 11:50 Education Provided to Patient and Family: Methamphetamine cessation encouraged. Smoking Cessation encouraged. Post toenail removal instruction verbally provided to patient. Patient left AMA despite instruction this morning to try to leave tomorrow am after labs are better. Follow-ups: LEFT AMA, GOT ON AIRPLANE Disposition: AMA Hospital Course: Patient brought to hospital yesterday disoriented, aggressive/combative due to disorderly activities at local [facility]. He was found to be intoxicated suspected and later confirmed to be meth +. History was significantly limited. NO charges were placed, patient was not under arrest but combative and decision to sedate/restrain patient was made. He was found to have DHRUV, mild hypernatremia , anemia, leukocytosis and +Meth with acute toxic metabolic encephalopathy likely. HE was given ativan, haldol and geodon in ER and was then asleep/ sedated when I saw him for admission. Labs reviewed, orders placed. NS 125ml/ hour 1.25 maintenance given to patient and we set him up to have ativan 1mg q 2 hours PRN through the night. CKMB returned at 18.5 in the evening, I increased fluids to 150ml/hour. He slept the night and did not have any ativan. Awoke this am, feeling sore but feeling better. He was AAOx3 and answering questions. Made phone call to sister in [place], made call to bank and to ex GF. I noted that his DHRUV was resolved, leukocytosis was resolved, anemia mildly worse. Fluid hydration helped. K+ had dropped some, we gave him a pill of 20meq K+CL- by mouth. Hypernatremia resolved. CKMB had dropped to 13. 5 and overall he was improving. The patient and I talked about his history, updated much of his PMHX and talked about the plan for d/c tomorrow. I noted he had an avulsed digit 1 on his right and we did remove this nail today as a separate procedure (SEE PROCEDURE NOTE). The patient was given breakfast, tolerated this well. He decided to leave AMA at 11:15 TODAY DESPITE MY RECOMMENDATIONS AGAINST LEAVING EARLY. He was aaox3 able to discuss clearly his care and history and he made plan to leave against my recommendations. He has History of Hep C, history of chronic drug use. Removal of toenail in hospital today. Day of discharge Physical Exam (Taken from Progress note dated 12/08/17 for physical examination). Constitutional: Appearance-Now no acute distress, Consistent with stated age. Orientation- Oriented x 3 now alert Gait-Normal pace, normal arm movement. Build and Nutrition-Average for age. General- Patient is pleasant and cooperative with the interview and exam. Good eye contact. Left eye artificial. Integumentary: General-No rashes, ulcers or lesions. Skin is warm to touch, appropriate. Capillary refill is normal bilateral Upper and lower extremity. Head/Neck: Head- normocephalic and atraumatic. Neck- without visible/palpable lumps or pulsations. Palpation- No bony tenderness about head/neck along frontal, occipital, temporal, parietal, mastoid, jawline, zygoma, orbit or any other location. NO temporal artery tenderness. No TMJ tenderness. Neck Supple. Thyroid-No thyromegaly, no nodules Eye: PERRLA, EOMI on right, left eye artificial No discharge. Upper and lower eyelids are normal. Sclera/conjunctiva normal without discharge. Cornea is normal and clear. Lens is normal. Eyeball appears normal. No ciliary flushing, no conjunctival injection. ENMT: Nose and sinus- No sinus tenderness along frontal/maxillary region. External appearance normal and midline. Nares- bilateral quiet airflow, no discharge. Nasal mucosa- No bleeding noted and no ulcerations observed. [place], moist. Turbinates non boggy. Lips- normal color, moist without cracks/lesions Oral Cavity/Palate- hard/soft palate intact without lesions, oral mucosa pink and moist. Tongue normal midline. Oropharynx- no pharyngeal erythema, Uvula midline. No post nasal drip. No exudate. Salivary glands- Non tender to palpation CHEST/LUNG: Inspection- symmetric chest wall no pectus deformity. Normal effort , no distress, no use of accessory muscles. Palpation- nontender sternum, ribline. No abnormal pulsations. Auscultation- Breath sounds normal throughout all lung clement. Normal tracheal sounds, Normal bronchial sounds overlying sternum, Bronchovessicular sounds normal between scapulae posteriorly, Normal vessicular breath sounds heard throughout periphery. Lungs are clear today. Adventitious sounds- No wheezes, rales, rhonchi. CARDIOVASCULAR: Carotid artery- normal, no bruits or abnormal pulsations. Jugular vein- no pulsations. Palpation/Percussion- Normal PMI, no palpable thrill Auscultation- Regular rate and rhythm. No murmur noted in sitting, supine positions. Extremities- no digital clubbing, cyanosis, edema, increased warmth. ABDOMEN: Inspection- normal and no visible pulsations. Normal contour. Auscultation- Bowel sounds normal, no abdominal bruits. Palpation/Percussion- soft, non-tender, no rebound tenderness, no rigidity (guarding), no jar tenderness, no masses. Liver-no hepatomegaly, Spleen no splenomegaly, Peripheral Vascular: Upper extremity Left- Normal temperature with pink nailbeds and no ulcerations. Upper extremity Right- Normal temperature with pink nailbeds and no ulcerations. Lower extremity- Normal temperature with pink nailbeds and no ulcerations. DP pulses 2+ bilaterally. Pedal hair intact. Normal capillary refill. Edema- No edema. +SCD in place. Musculoskeletal: Generalized- Reports generalized malaise/myalgia. No generalized swelling or edema of extremities, no digital clubbing or cyanosis, neurovascularly intact all four extremities. Toenail digit 1 right is avulsed nearly completely. Removed this today. Upper extremity- Symmetrical posture. No visible deformity. Normal sensation along medial and lateral upper extremity proximally and distally. NO tenderness overlying shoulder, lateral/medial epicondyle. [employer] 5/5 and strength 5/5 bilateral UE. Elbow palpated, no tenderness overlying olecranon. Normal supination, pronation to active/passive ROM and to resisted rotation. Bicep insertion/tricep insertion appear normal without obvious pathology. Rotator cuff evaluated and intact. Normal wrist ROM bilaterally. Normal hand movement, intrinsic muscles of hands normal. No tenderness to palpation of hands/wrists/ elbows. Lower extremity- Hip: Not tender to palpation, no pain, no swelling, edema or erythema of surrounding tissue, normal strength and tone. Normal appearing hip ROM bilaterally without pain. Knee: Knee ROM normal. No tenderness overlying trochanters, no tenderness about patella, quad tendon, patellar tendon. No tenderness at tibial tuberosity. Ankle: normal ROM not tender to palpation along medial/lateral malleolus. Foot: Normal movement of toes, no tenderness bilateral feet/toes. Normal foot type. Spine/Ribs- No deformities, masses or tenderness, no known fractures, normal strength, Normal ROM. Normal stability No tenderness along C/T/L spine. Normal appearing ROM about spine. Neurological: General- Moves all 4 extremities symmetrically. Symmetrical face and body posture. Cranial nerves- individually evaluated II-XII and intact. PERRLA on right only, Normal EOMI on right only, LEFT EYE ARTIFICIAL Face is symmetrical and normal sensation/movement, normal tongue, normal strength/ posture of neck musculature. Reflexes- intact with DTR 2+ patellar, Achilles, bicep, brachial, tricep. Ankle clonus normal with 2 beats. Strength- 5/5 bilateral UE and LE. Soft touch- intact bilateral UE and LE. Temperature sensation- intact bilateral UE and LE. Neuropsych: Oriented- Person, place, time. (AAOx3), Mood/affect- normal and congruent. Able to articulate well. Speech-Normal speech, normal rate, normal tone, normal use of language, volume and coherence. Thought content- appears normal, abstracting, thought processes normal. No SI/HI. Ability to perform basic computations, follow trend, tell story. Knowledge- Age appropriate fund of knowledge, concentration and attention span normal. Lymphatic: Head/Neck- normal size and non tender to palpation. Axillary- normal size and non tender to palpation. Femoral and Inguinal- normal size and non tender to palpation. Plan: 1. PATIENT LEFT AMA.
== END 2017-12-08 11:13 | disposition left against medical advice (07) | DRG 92 ==
LOC: ED 10:37 → MEDSURG A 15:06 → SCU 15:07
PROVIDERS: ADMIT Family Medicine; ATTEND Family Medicine
PROC: 0HDRXZZ Extraction of Toe Nail, External Approach (ICD-10-PCS; principal; 2017-12-07)
DX: G92 Toxic encephalopathy (principal); N17.9 Acute kidney failure, unspecified; E87.0 Hyperosmolality and hypernatremia; F15.129 Other stimulant abuse with intoxication, unspecified; R41.82 Altered mental status, unspecified; E86.0 Dehydration; R74.8 Abnormal levels of other serum enzymes; E87.6 Hypokalemia; M79.1 Myalgia; D64.9 Anemia, unspecified; D72.829 Elevated white blood cell count, unspecified; S91.209A Unspecified open wound of unspecified toe(s) with damage to nail, initial encounter; F17.210 Nicotine dependence, cigarettes, uncomplicated; R29.6 Repeated falls; F19.90 Other psychoactive substance use, unspecified, uncomplicated; Z91.89 Other specified personal risk factors, not elsewhere classified; Z97.0 Presence of artificial eye
CPT/HCPCS: 36415; 80053; 80306; 80307; 81001; 82550; 82553; 82803; 82962; 84484; 85025; 85610; 93005; 93010; 96361; 96372; 96374; 96376; 99285